=== PATIENT | male | born 1965 | race Caucasian/White ===

== ENCOUNTER 2017-12-22 17:49 | Emergency (ER) | payer SELFPAY ==
[~2017-12-22] VITALS: Ht 182.9 cm; Wt 104.6 kg
[2017-12-22 18:24] LABS: HEMATOCRIT 41.9 % (38.0-50.0); MCH 31.8 PG (29.0-34.0); MCHC 35.8 G/DL (30.0-36.0); MCV 88.8 FL (86-99); PLATELET COUNT 203 K/uL (156-360); RBC DIS.WIDTH-SD 38.5 % (39-53); RED BLOOD COUNT 4.72 M/uL (4.00-5.50); WHITE BLOOD COUNT 7.1 K/uL (4.1-10.2)
[2017-12-22 18:32] LABS: ALBUMIN 4.4 g/dL (3.2-4.8); CHLORIDE 100 mEq/L (99-109); POTASSIUM 4.2 mEq/L (3.7-5.4); SODIUM 134 mEq/L (136-147)
[2017-12-22 18:34] LABS: GLUCOSE 285 mg/dL (70-99); TOTAL PROTEIN 7.7 g/dL (6.4-8.3)
[2017-12-22 18:38] LABS: ALKALINE PHOSPHATASE 100 IU/L (3-129); CREATININE 1.3 mg/dL (0.6-1.3); GFR ESTIMATE (CALCULATED) > 59 mL/min/ (58.99-99999)
[2017-12-22 18:39] LABS: APPEARANCE CLEAR ((CLEAR)); BILIRUBIN NEGATIVE; BLOOD SMALL; COLOR YELLOW ((YELLOW)); GLUCOSE (STRIP) >=500; KETONES NEGATIVE; LEUKOCYTES NEGATIVE; NITRITE NEGATIVE; PROTEIN (STRIP) 100; SPECIFIC GRAVITY 1.038 (1.000-1.030)
[2017-12-22 18:39] LABS: AST (GOT) 17 IU/L (2-34); UREA NITROGEN (BUN) 20 mg/dL (9-23)
[2017-12-22 18:41] LABS: BACTERIA NONE SEEN /HPF; EPITHELIAL CELLS NONE SEEN /HPF; MUCUS TRACE /LPF; RED BLOOD CELLS 0-5 /HPF (0-5); UCUL ADDED? NO; WHITE BLOOD CELLS 0-5 /HPF (0-5)
[2017-12-22 18:41] LABS: ALT (GPT) 22 IU/L (3-49)
[2017-12-22 20:24] LABS: LIPASE 14 U/L (1.0-51.0)
[2017-12-22] MEDS ORDERED: MOTRIN800 MG PO (21:10)
[2017-12-22] MEDS ORDERED: SKELAXIN800 MG PO (21:10)
[2017-12-22] MEDS ORDERED: TRAMADOL HCL50 MG PO (21:10)
[2017-12-22 21:38] VITALS: BP 122/92
== END 2017-12-22 21:39 | disposition home or self-care (01) ==
LOC: EME 17:49
DX: R10.9 Unspecified abdominal pain (principal); M16.0 Bilateral primary osteoarthritis of hip; M47.898 Other spondylosis, sacral and sacrococcygeal region; M51.37 Other intervertebral disc degeneration, lumbosacral region; I10 Essential (primary) hypertension; E11.9 Type 2 diabetes mellitus without complications; E78.5 Hyperlipidemia, unspecified
CPT/HCPCS: 74176; 80053; 81003; 83690; 85027; 99281; 99284; J1885